=== PATIENT | male | born 1955 ===

== ENCOUNTER 2017-06-25 11:59 | Inpatient (IN) | payer MEDICAID, OTHER ==
[~2017-06-25] VITALS: Ht 185.4 cm; Wt 101.7 kg
[~2017-06-25 11:59] MED LIST: AMOX875T PO; ASPI81TA50 PO; ATOR20TA PO; CEPH-376 PO; CLIN300C8 PO; FURO-93 PO; GEMF600T3 PO; GLIP5TAB3 PO; GLYB2.5T2 PO; Hydrocodone Bit/Acetaminophen PO; INSU100V5 SQ-INSULIN; LISI-170 PO; METF500T4 PO; POTA10TA5 PO
[2017-06-25] MEDS ORDERED: INSU100I32 SQ (12:32)
[2017-06-25] MEDS ORDERED: LIRA0.6P SQ-INSULIN (12:32)
[2017-06-25] MEDS ORDERED: INSU100I37 SQ (12:32)
[2017-06-25] MEDS ORDERED: PANTOPRAZOLE 80 MG in SODIUM CHLORIDE 0.9% 50 ML IVPB ONE (12:33)
[2017-06-25 12:40] LABS: BASOPHILS % (AUTO) 0 % (0-1); EOSINOPHILS % (AUTO) 0 % (1-7); LYMPHOCYTES # (AUTO) 1.29 x10^3/uL (1-3.4); LYMPHOCYTES % (AUTO) 14 % (22-44); MD NO; MEAN CORPUSCULAR HEMOGLOBIN 29.4 pg (27.5-34.5); MEAN CORPUSCULAR HGB CONC 34.2 g/dL (33.2-36.2); MEAN CORPUSCULAR VOLUME 86.1 fL (81-97); MEAN PLATELET VOLUME 8.6 fL (7.4-10.4); MONOCYTES # (AUTO) 0.79 x10^3/uL (0.2-0.8); MONOCYTES % (AUTO) 8 % (2-9); NEUTROPHILS # (AUTO) 7.39 x10^3/uL (1.8-6.8); NEUTROPHILS % (AUTO) 78 % (42-75); PLATELET COUNT 329 x10^3/uL (130-400); RED BLOOD COUNT 5.02 x10^6/uL (4.38-5.82); RED CELL DISTRIBUTION WIDTH 14.6 % (9.4-14.8)
[2017-06-25 12:49] LABS: ALANINE AMINOTRANSFERASE 20 U/L (12-78); ALBUMIN 3.7 g/dL (3.4-5.0); ANION GAP 16 mmol/L (5-15); CALCIUM 9.7 mg/dL (8.5-10.1); CHLORIDE 99 mmol/L (98-107); CREATININE 1.33 mg/dL (0.7-1.3)
[2017-06-25 12:51] LABS: ALKALINE PHOSPHATASE 52 U/L (45-117); BILIRUBIN,TOTAL 0.7 mg/dL (0.2-1.0)
[2017-06-25] MEDS ORDERED: METOCLOPRAMIDE 5 MG/ML, 2ML ONE (12:57)
[2017-06-25] MEDS ORDERED: METOCLOPRAMIDE 5 MG/ML, 2ML IVPush ONE (13:00)
[2017-06-25] MEDS ORDERED: SODIUM CHLORIDE FLUSH 10ML SYR IVF ONE (13:00)
[2017-06-25 13:26] LABS: TROPONIN I < 0.015 ng/mL (0.000-0.045)
[2017-06-25] MEDS: PANTOPRAZOLE 80 MG in SODIUM CHLORIDE 0.9% 100 ML IV SCH ×2 (13:27→16:17)
[2017-06-25 13:34] LABS: INTERNATIONAL NORMALIZED RATIO 0.9 (0.93-1.1); PROTHROMBIN TIME 9.4 Seconds (9.6-11.5)
[2017-06-25] MEDS ORDERED: DEXTROSE 50%, 50ML SYRINGE IVPush PRN (15:30)
[2017-06-25] MEDS ORDERED: hydrALAzine 20 MG/ML, 1ML IVPush PRN (15:30)
[2017-06-25] MEDS ORDERED: DEXTROSE 4 GM TAB.CHEW PO PRN (15:30)
[2017-06-25] MEDS ORDERED: ACETAMINOPHEN 325 MG TABLET PO PRN (15:30)
[2017-06-25] MEDS ORDERED: ONDANSETRON 2MG/ML, 2ML IVPush PRN (15:30)
[2017-06-25] MEDS ORDERED: morphine SULFATE 10 MG/ML, 1ML IVPush PRN (15:30)
[2017-06-25] MEDS ORDERED: GLUCAGON 1 MG IM PRN (15:30)
[2017-06-25 16:25] VITALS: BP 177/99
[2017-06-25] MEDS: LACTATED RINGERS 1,000 ML IV SCH ×2 (17:01→21:51)
[2017-06-25 19:12] VITALS: BP 164/94
[2017-06-25] MEDS: PANTOPRAZOLE 40 MG IV IVPush SCH (20:12)
[2017-06-25 21:11] LABS: MICROSCOPIC INDICATED
[2017-06-25 21:20] LABS: CULTURE INDICATED? NO
[2017-06-25] MEDS: SODIUM CHLORIDE FLUSH 10ML SYR IVF SCH (21:51)
[2017-06-26 01:00] VITALS: BP 152/89
[2017-06-26] MEDS: LACTATED RINGERS 1,000 ML IV SCH ×3 (03:05→13:00)
[2017-06-26 05:48] LABS: BASOPHILS # (AUTO) 0.03 x10^3/uL (0-0.1); BASOPHILS % (AUTO) 0 % (0-1); EOSINOPHILS % (AUTO) 0 % (1-7); LYMPHOCYTES # (AUTO) 1.31 x10^3/uL (1-3.4); LYMPHOCYTES % (AUTO) 15 % (22-44); MD NO; MEAN CORPUSCULAR HEMOGLOBIN 29.3 pg (27.5-34.5); MEAN CORPUSCULAR HGB CONC 33.6 g/dL (33.2-36.2); MEAN CORPUSCULAR VOLUME 87.2 fL (81-97); MEAN PLATELET VOLUME 8.6 fL (7.4-10.4); MONOCYTES # (AUTO) 0.77 x10^3/uL (0.2-0.8); MONOCYTES % (AUTO) 9 % (2-9); NEUTROPHILS # (AUTO) 6.76 x10^3/uL (1.8-6.8); NEUTROPHILS % (AUTO) 76 % (42-75); PLATELET COUNT 281 x10^3/uL (130-400); RED BLOOD COUNT 4.54 x10^6/uL (4.38-5.82); RED CELL DISTRIBUTION WIDTH 14.8 % (9.4-14.8)
[2017-06-26 05:56] LABS: ALANINE AMINOTRANSFERASE 20 U/L (12-78); ALBUMIN 3.1 g/dL (3.4-5.0); ANION GAP 13 mmol/L (5-15); CALCIUM 8.8 mg/dL (8.5-10.1); CHLORIDE 100 mmol/L (98-107); CREATININE 1.03 mg/dL (0.7-1.3)
[2017-06-26 05:58] LABS: ALKALINE PHOSPHATASE 46 U/L (45-117); BILIRUBIN,TOTAL 0.7 mg/dL (0.2-1.0); TOTAL PROTEIN 6.7 g/dL (6.4-8.2)
[2017-06-26 06:40] VITALS: BP 162/88
[2017-06-26] MEDS: PANTOPRAZOLE 40 MG IV IVPush SCH (08:57)
[2017-06-26] MEDS: SODIUM CHLORIDE FLUSH 10ML SYR IVF SCH (09:02)
[2017-06-26] MEDS ORDERED: AMLO2.5T2 PO ×2 (09:46→09:58)
[2017-06-26] MEDS ORDERED: FENO145T32 PO (09:47)
[2017-06-26] MEDS ORDERED: DAPA10TA PO ×2 (09:53→10:01)
[2017-06-26] MEDS ORDERED: GABA300C PO (09:58)
[2017-06-26] MEDS ORDERED: GABAPENTIN 300 MG CAPSULE PO SCH (10:00)
[2017-06-26] MEDS ORDERED: metFORMIN 500 MG TABLET PO SCH (10:00)
[2017-06-26] MEDS ORDERED: AMLODIPINE 2.5 MG TABLET PO SCH (10:00)
[2017-06-26] MEDS ORDERED: POTASSIUM PHOSPHATE 44 MEQ in SODIUM CHLORIDE 0.9% 500 ML IV ONE (10:00)
[2017-06-26] MEDS ORDERED: PIOGLITAZONE 15 MG TABLET PO SCH (10:00)
[2017-06-26] MEDS ORDERED: ASPIRIN 81 MG TABLET EC PO SCH (10:00)
[2017-06-26] MEDS ORDERED: PIOG30TA3 PO (10:03)
[2017-06-26 12:41] VITALS: BP 173/99
[2017-06-26] MEDS ORDERED: PNEUMOCOCCAL 23 VACCINE IM-VACC ONE (16:30)
[2017-06-26] MEDS ORDERED: ATORVASTATIN 20 MG TABLET PO SCH (21:00)
== END 2017-06-26 17:39 | disposition home or self-care (01) | DRG 378 ==
LOC: ED 13:40 → EDIP 14:10 → 4EST 16:10
PROVIDERS: ADMIT Internal Medicine; ATTEND Hospitalist
DX: K92.1 Melena (principal); E87.2 Acidosis; E11.65 Type 2 diabetes mellitus with hyperglycemia; I50.9 Heart failure, unspecified; I11.0 Hypertensive heart disease with heart failure; E87.1 Hypo-osmolality and hyponatremia; K92.0 Hematemesis; E78.5 Hyperlipidemia, unspecified; E55.9 Vitamin D deficiency, unspecified; E86.0 Dehydration; H40.9 Unspecified glaucoma; N28.9 Disorder of kidney and ureter, unspecified; Z79.4 Long term (current) use of insulin; Z87.891 Personal history of nicotine dependence; Z79.899 Other long term (current) drug therapy
CPT/HCPCS: 36415; 74022; 80053; 81001; 82962; 83605; 83690; 83735; 84100; 84484; 85025; 85610; 85730; 86677; 90732; 93005; 96365; 96375; C9113; J0360; J2765; J7040; J7120

== ENCOUNTER 2017-11-13 09:08 | Emergency (ER) | payer MEDICAID, OTHER ==
[~2017-11-13] VITALS: Ht 185.4 cm; Wt 109.5 kg
[~2017-11-13 09:08] MED LIST changes: +AMLO2.5T2 PO; +DAPA10TA PO; +FENO145T32 PO; +GABA300C PO; +INSU100I32 SQ; +INSU100I37 SQ; +LIRA0.6P SQ-INSULIN; -METF500T4 PO; +METF500T5 PO; +PIOG30TA67 PO
[2017-11-13] MEDS ORDERED: LIDOCAINE-MPF 1%, 5ML INFIL ONE (09:30)
[2017-11-13] MEDS ORDERED: INSU100I32 SQ (09:32)
[2017-11-13] MEDS ORDERED: LIDOCAINE-MPF 2%, 2ML ONE (09:38)
[2017-11-13] MEDS ORDERED: BACITRACIN ZINC OINT 500U/GM, 0.9 GM ONE (09:42)
[2017-11-13 09:55] LABS: BASOPHILS # (AUTO) 0.05 x10^3/uL (0-0.1); BASOPHILS % (AUTO) 1 % (0-1); EOSINOPHILS # (AUTO) 0.32 x10^3/uL (0-0.4); EOSINOPHILS % (AUTO) 4 % (1-7); LYMPHOCYTES # (AUTO) 2.06 x10^3/uL (1-3.4); LYMPHOCYTES % (AUTO) 25 % (22-44); MD NO; MEAN CORPUSCULAR HEMOGLOBIN 29.2 pg (27.5-34.5); MEAN CORPUSCULAR HGB CONC 33.8 g/dL (33.2-36.2); MEAN CORPUSCULAR VOLUME 86.4 fL (81-97); MEAN PLATELET VOLUME 8.1 fL (7.4-10.4); MONOCYTES # (AUTO) 0.42 x10^3/uL (0.2-0.8); MONOCYTES % (AUTO) 5 % (2-9); NEUTROPHILS # (AUTO) 5.54 x10^3/uL (1.8-6.8); NEUTROPHILS % (AUTO) 66 % (42-75); PLATELET COUNT 342 x10^3/uL (130-400); RED BLOOD COUNT 4.38 x10^6/uL (4.38-5.82); RED CELL DISTRIBUTION WIDTH 14.6 % (9.4-14.8)
[2017-11-13 09:58] LABS: ALANINE AMINOTRANSFERASE 22 U/L (12-78); ALBUMIN 3.9 g/dL (3.4-5.0); ANION GAP 8 mmol/L (5-15); CALCIUM 9.6 mg/dL (8.5-10.1); CHLORIDE 112 mmol/L (98-107); CREATININE 1.09 mg/dL (0.7-1.3)
[2017-11-13 10:00] LABS: ALKALINE PHOSPHATASE 79 U/L (45-117); BILIRUBIN,TOTAL 0.4 mg/dL (0.2-1.0); TOTAL PROTEIN 7.3 g/dL (6.4-8.2)
[2017-11-13] MEDS ORDERED: LIDOCAINE 2%, 20ML SQ ONE (10:00)
[2017-11-13 11:17] VITALS: BP 168/93
== END 2017-11-13 11:50 | disposition home or self-care (01) ==
LOC: ED 09:54
DX: S51.812A Laceration without foreign body of left forearm, initial encounter (principal); R55 Syncope and collapse; E11.9 Type 2 diabetes mellitus without complications; I10 Essential (primary) hypertension; W19.XXXA Unspecified fall, initial encounter; Y93.89 Activity, other specified; Y92.89 Other specified places as the place of occurrence of the external cause; Y99.8 Other external cause status
CPT/HCPCS: 12032; 36415; 80053; 85025; 93005; 99285; J3490